=== PATIENT | female | born 1965 | race Caucasian/White ===

== ENCOUNTER 2017-08-28 21:27 | Observation (INO) | payer OTHER ==
[2017-08-28] MEDS ORDERED: ASPIRIN 81 MG PO STA (22:12)
--- NOTE | 2017-08-28 22:17 | ED ---
General Adult HPI - General Chief complaint: Chest Pain Stated complaint: heart palpitations Time Seen by Provider: 08/28/17 22:03 Source: patient Mode of arrival: wheelchair Limitations: no limitations - History of Present Illness Initial comments: This 52-year-old white female presents with the complaint of palpitations. She states that she has had these for many months. She states that she was sick throughout the winter with an upper respiratory infection. She was on steroids and thought that it could be related to the steroids. She's never been fully evaluated for her palpitations as of yet. She does relate that she will occasionally have some slight pressure to her lower chest as well. This seems to radiate up into her jaw and teeth. She also complains of occasional dizziness and nausea. She has had a stress test approximately 2 years ago which was normal. She denies any other cardiac disease. There is no shortness of breath. She states that her blood pressure has been slightly elevated. No other complaints or modifying factors. She does relate that she has a strong family history of cardiac disease. - Related Data Home Medications Medication Instructions Recorded Confirmed Estrogen,Angelica/Me-Testosterone 1 tab PO DAILY 08/18/15 08/28/17 [Covaryx H.s. Tablet] Levothyroxine Sodium [Unithroid] 100 mcg PO DAILY 08/18/15 08/28/17 Lisinopril [Prinivil] 5 mg PO DAILY 08/18/15 08/28/17 sitaGLIPtin PHOSPHATE [Januvia] 100 mg PO DAILY 08/18/15 08/28/17 Cholecalciferol [Vitamin D3] 1,000 unit PO BID 04/10/16 08/28/17 Multivitamins, Thera [Multivitamin] 1 tab PO DAILY 04/10/16 08/28/17 Aspirin 81 mg PO DAILY 08/28/17 08/28/17 Calcium Carbonate [Calcium] 600 mg PO DAILY 08/28/17 08/28/17 Fluticasone Nasal [place] [Flonase 1 spr EA NOSTRIL BID 08/28/17 08/28/17 Nasal [place]] Simvastatin 40 mg PO DAILY 08/28/17 08/28/17 metFORMIN HCL ER [Glucophage Xr] 1,000 mg PO QAM 08/28/17 08/28/17 metFORMIN HCL ER [Glucophage Xr] 500 mg PO HS 08/28/17 08/28/17 Allergies Allergy/AdvReac Type Severity Reaction Status Date / Time No Known Allergies Allergy Verified 08/28/17 22:28 Review of Systems ROS Statement: Those systems with pertinent positive or pertinent negative responses have been documented in the HPI. ROS Other: All systems not noted in ROS Statement are negative. Past Medical History Past Medical History: Cancer, Diabetes Mellitus, Hyperlipidemia, Thyroid Disorder Additional Past Medical History / Comment(s): uterine cancer History of Any Multi-Drug Resistant Organisms: None Reported Past Surgical History: Ear Surgery, Hysterectomy, Tubal Ligation Additional Past Surgical History / Comment(s): oral surgery, PE tube right ear Past Anesthesia/Blood Transfusion Reactions: No Reported Reaction Past Psychological History: No Psychological Hx Reported Smoking Status: Never smoker Past Alcohol Use History: None Reported Past Drug Use History: None Reported - Past Family History Father Family Medical History: Cancer General Exam - General Exam Comments Initial Comments: GENERAL: The patient is well nourished and well hydrated. VITAL SIGNS: Heart rate, blood pressure, respiratory rate reviewed as recorded in nurse's notes. EYES: Pupils are round and reactive. Extraocular movements are intact. No conjunctival / lid redness or swelling. ENT: No external evidence of injury, swelling, or ecchymosis. Airway is patent. Throat is clear. NECK: Nontender. No swelling or evidence of injury. No subcutaneous emphysema. Trachea is midline. No thyroid mass. HEART: Regular rate and rhythm. Good peripheral pulses. LUNGS/CHEST: Breath sounds clear and equal bilaterally. No rales, rhonchi, or wheezes. No ecchymosis, subcutaneous emphysema, or tenderness. ABDOMEN: Abdomen soft without tenderness. No palpable masses or organomegaly. No peritoneal signs. No abdominal wall swelling or ecchymosis. EXTREMITIES: No extremity tenderness. Normal muscle tone and function. No thoracolumbar tenderness. NEUROLOGIC: Sensation is grossly intact. Cranial nerve exam reveals face is symmetrical, tongue is midline, speech is clear. SKIN: No abrasions or ecchymosis is noted. No induration or masses noted. PSYCHIATRIC: Alert and oriented. Appropriate behavior and judgment. 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 All diagnostics were reviewed. An IV is established and she is placed on a shelter monitor. Multiple PVCs are noted on the shelter monitor while evaluating her in the room. The patient also had a normal sinus rhythm on her EKG with a rate of 77. There is no acute ST-T wave changes noted. The KS intervals 166, QRS duration is 86, and the QTc interval is 425. The patient does receive an aspirin. The chest x-ray does not show any acute process. The laboratory does show an elevation in her calcium level which is likely due to her calcium supplementation. The patient also had a slight elevation of her TSH. She does relate that she had a normal T3 and T4 done in May 2017. Overall, is felt likely that her palpitations are related to the PVCs. She is instructed to hold off on her calcium supplementation for the next week and then decrease her dose after that. The possibility of her having acute coronary syndrome also is possible and is felt as though she should be admitted to the hospital for further treatment in this regard. She is agreeable to this plan. The case will be discussed with internal medicine shortly and she will be admitted for observation. - Lab Data Result diagrams: 08/28/17 22:00 08/28/17 22:00 Lab Results 08/28/17 08/28/17 08/28/17 Range/Units 22:00 22:00 22:00 WBC 7.7 (3.8-10.6) k/uL RBC 4.92 (3.80-5.40) m/uL Hgb 14.5 (11.4-16.0) gm/dL Hct 41.2 (34.0-46.0) % MCV 83.7 (80.0-100.0) fL MCH 29.4 (25.0-35.0) pg MCHC 35.1 (31.0-37.0) g/dL RDW 13.9 (11.5-15.5) % Plt Count 225 (150-450) k/uL Neutrophils % 53 % Lymphocytes % 37 % Monocytes % 6 % Eosinophils % 1 % Basophils % 1 % Neutrophils # 4.1 (1.3-7.7) k/uL Lymphocytes # 2.9 (1.0-4.8) k/uL Monocytes # 0.4 (0-1.0) k/uL Eosinophils # 0.1 (0-0.7) k/uL Basophils # 0.0 (0-0.2) k/uL Poikilocytosis Slight PT (9.0-12.0) sec INR (<1.2) APTT (22.0-30.0) sec Sodium 141 (137-145) mmol/L Potassium 4.0 (3.5-5.1) mmol/L Chloride 101 (98-107) mmol/L Carbon Dioxide 24 (22-30) mmol/L Anion Gap 16 mmol/L BUN 14 (7-17) mg/dL Creatinine 0.70 (0.52-1.04) mg/dL Est GFR (CKD-EPI)AfAm >90 (>60 ml/min/1.73 sqM) Est GFR (CKD-EPI)NonAf >90 (>60 ml/min/1.73 sqM) Glucose 142 H (74-99) mg/dL Calcium 10.7 H (8.4-10.2) mg/dL Magnesium 1.9 (1.6-2.3) mg/dL Total Bilirubin 0.5 (0.2-1.3) mg/dL AST 20 (14-36) U/L ALT 26 (9-52) U/L Alkaline Phosphatase 59 (38-126) U/L Total Creatine Kinase 28 L (30-135) U/L CK-MB (CK-2) 0.4 (0.0-2.4) ng/mL CK-MB (CK-2) Rel Index 1.4 Troponin I <0.012 (0.000-0.034) ng/mL Total Protein 7.5 (6.3-8.2) g/dL Albumin 4.8 (3.5-5.0) g/dL TSH 5.360 H (0.465-4.680) mIU/L Free T4 1.43 (0.78-2.19) ng/dL 08/28/17 Range/Units 22:00 WBC (3.8-10.6) k/uL RBC (3.80-5.40) m/uL Hgb (11.4-16.0) gm/dL Hct (34.0-46.0) % MCV (80.0-100.0) fL MCH (25.0-35.0) pg MCHC (31.0-37.0) g/dL RDW (11.5-15.5) % Plt Count (150-450) k/uL Neutrophils % % Lymphocytes % % Monocytes % % Eosinophils % % Basophils % % Neutrophils # (1.3-7.7) k/uL Lymphocytes # (1.0-4.8) k/uL Monocytes # (0-1.0) k/uL Eosinophils # (0-0.7) k/uL Basophils # (0-0.2) k/uL Poikilocytosis PT 10.3 (9.0-12.0) sec INR 1.0 (<1.2) APTT 20.8 L (22.0-30.0) sec Sodium (137-145) mmol/L Potassium (3.5-5.1) mmol/L Chloride (98-107) mmol/L Carbon Dioxide (22-30) mmol/L Anion Gap mmol/L BUN (7-17) mg/dL Creatinine (0.52-1.04) mg/dL Est GFR (CKD-EPI)AfAm (>60 ml/min/1.73 sqM) Est GFR (CKD-EPI)NonAf (>60 ml/min/1.73 sqM) Glucose (74-99) mg/dL Calcium (8.4-10.2) mg/dL Magnesium (1.6-2.3) mg/dL Total Bilirubin (0.2-1.3) mg/dL AST (14-36) U/L ALT (9-52) U/L Alkaline Phosphatase (38-126) U/L Total Creatine Kinase (30-135) U/L CK-MB (CK-2) (0.0-2.4) ng/mL CK-MB (CK-2) Rel Index Troponin I (0.000-0.034) ng/mL Total Protein (6.3-8.2) g/dL Albumin (3.5-5.0) g/dL TSH (0.465-4.680) mIU/L Free T4 (0.78-2.19) ng/dL Disposition Clinical Impression: Unstable angina pectoris, Palpitations, Frequent PVCs, Dizziness, Chest pressure, Hypothyroidism, Hypercalcemia Disposition: ADMITTED IP TO THIS HOSP Condition: Good Is patient prescribed a controlled substance at discharge?: No Time of Disposition: 00:13
[2017-08-28 22:28] LABS: Basophils % (A) 1 %; Eosinophils # (A) 0.1 k/uL (0-0.7); Eosinophils % (A) 1 %; HCT 41.2 % (34.0-46.0); HGB 14.5 gm/dL (11.4-16.0); Lymphocytes # (A) 2.9 k/uL (1.0-4.8); Lymphocytes % (A) 37 %; MCH 29.4 pg (25.0-35.0); MCHC 35.1 g/dL (31.0-37.0); MCV 83.7 fL (80.0-100.0); Mean Platelet Volume 6.9; Monocytes # (A) 0.4 k/uL (0-1.0); Monocytes % (A) 6 %; Neutrophils # (A) 4.1 k/uL (1.3-7.7); Neutrophils % (A) 53 %; Platelet Count 225 k/uL (150-450); Poikilocytosis Slight; RBC 4.92 m/uL (3.80-5.40); RDW 13.9 % (11.5-15.5); WBC 7.7 k/uL (3.8-10.6)
[2017-08-28 22:40] LABS: ALT 26 U/L (9-52); AST 20 U/L (14-36); Albumin 4.8 g/dL (3.5-5.0); Alkaline Phosphatase 59 U/L (38-126); Anion Gap 16 mmol/L; Blood Urea Nitrogen 14 mg/dL (7-17); Calcium 10.7 mg/dL (8.4-10.2); Carbon Dioxide 24 mmol/L (22-30); Chloride 101 mmol/L (98-107); Glucose 142 mg/dL (74-99); Magnesium 1.9 mg/dL (1.6-2.3); Sodium 141 mmol/L (137-145); Total Bilirubin 0.5 mg/dL (0.2-1.3); Total Protein 7.5 g/dL (6.3-8.2)
--- NOTE | 2017-08-28 22:43 | XR ---
EXAMINATION TYPE: XR chest 2V DATE OF EXAM: 08/28/2017 COMPARISON: 08/18/2015 HISTORY: Chest pain TECHNIQUE: Frontal and lateral views of the chest are obtained. FINDINGS: Heart and mediastinum are normal. Lungs are clear. Diaphragm is normal. Bony thorax is int act. There are chest leads. IMPRESSION: Normal chest
[2017-08-28 22:49] LABS: Creatine Kinase 28 U/L (30-135)
[2017-08-28 22:55] LABS: Partial Thromboplastin Time 20.8 sec (22.0-30.0); Prothrombin Time 10.3 sec (9.0-12.0)
[2017-08-28 23:02] LABS: Creatine Kinase MB 0.4 ng/mL (0.0-2.4); Troponin I <0.012 ng/mL (0.000-0.034)
[2017-08-28 23:41] LABS: T4, Free (Free Thyroxine) 1.43 ng/dL (0.78-2.19)
[2017-08-29] MEDS ORDERED: NITROGLYCERIN OINT 1 INCH/GM PACKET TOPICAL STA (00:13)
[2017-08-29] MEDS ORDERED: NITROGLYCERIN SL TABS 0.4 MG TAB SUBLINGUAL PRN (00:14)
[2017-08-29] MEDS ORDERED: ACETAMINOPHEN TAB 500 MG TAB PO STA (00:24)
[2017-08-29 01:35] VITALS: BMI 27.7
[2017-08-29 04:54] LABS: Creatine Kinase 21 U/L (30-135)
[2017-08-29 05:06] LABS: Creatine Kinase MB 0.3 ng/mL (0.0-2.4); Troponin I <0.012 ng/mL (0.000-0.034)
[2017-08-29] MEDS ORDERED: NITROGLYCERIN OINT 1 INCH/GM PACKET TOPICAL SCH (06:00)
[2017-08-29] MEDS ORDERED: LEVOTHYROXINE 100 MCG TAB PO SCH (06:30)
[2017-08-29 07:04] LABS: Glucose,Whole Blood 141 mg/dL (75-99)
[2017-08-29 07:58] VITALS: RESP 16
[2017-08-29] MEDS ORDERED: FLUTICASONE 50MCG/SPRAY NASAL 16GM EA NOSTRIL SCH (09:00)
[2017-08-29] MEDS ORDERED: LINAGLIPTIN 5 MG TABLET PO SCH (09:00)
[2017-08-29] MEDS ORDERED: ESTROGEN ESTER PO SCH (09:00)
[2017-08-29] MEDS ORDERED: LISINOPRIL 5 MG TAB PO SCH (09:00)
[2017-08-29] MEDS ORDERED: ENOXAPARIN 40 MG/0.4 ML SYRINGE SQ SCH (09:00)
[2017-08-29] MEDS ORDERED: CHOLECALCIFEROL 1,000 UNIT TAB PO SCH (09:00)
[2017-08-29] MEDS ORDERED: ATORVASTATIN 20 MG TAB PO SCH (09:00)
[2017-08-29] MEDS ORDERED: MULTIVITAMINS, THERA 1 EACH TAB PO SCH (09:00)
[2017-08-29] MEDS ORDERED: TESTOSTERONE PO SCH (09:00)
[2017-08-29] MEDS ORDERED: metFORMIN 500 MG TAB PO SCH ×2 (09:00→21:00)
[2017-08-29] MEDS ORDERED: ACETAMINOPHEN TAB 325 MG TAB PO PRN (09:14)
--- NOTE | 2017-08-29 09:34 | P.CRDCN ---
History of Present Illness Consult date: 08/29/17 History of present illness: Mrs. Melvin is a pleasant 52-year-old female past medical history significant for diabetes mellitus, hypertension, dyslipidemia and family history of coronary artery disease with both her mother and father. She denies personal history of coronary artery disease and has never seen a hopper feeder for any reason. We have been asked to see her in consultation for chest pain and palpitations. She states since around June she has been experiencing palpitations. They come on with no specific aggravating factors. She had been taking antibiotics and oral steroids for upper respiratory infections off and on and her PCP thought they were possibly related to that. She has also cut out caffeine with hopes of resolving and this has not worked. She still describes the palpitations. Then starting about Saturday night she felt a heavy pressure sensation in the epigastric region. The discomfort radiates up into her neck and jaw with difficulty in taking a deep breath. She also feels mildly nauseated and dizzy at times with this discomfort. Saturday night she actually vomiting one time and the pain and other symptoms immediately subsided after vomiting. EKG reveals sinus mechanism with no acute ST or T-wave abnormalities. Telemetry tracings reveal multiple PVC's. Chest xray negative for an acute cardiopulmonary process. Laboratory data reviewed, hemoglobin 14.5, platelets 225, potassium 4.0, sodium 141, magnesium 1.9, creatinine 0.7, calcium 10.7, TSH 5.36 0, free T4 1 0.43, cardiac enzymes negative 2. Current cardiac medications include lisinopril 5 mg daily, aspirin 81 mg daily and simvastatin 40 mg daily. Most recent stress test performed in August 2015 was a Cardiolite stress test which revealed no evidence of stress-induced reversible ischemia with an ejection fraction of 57%. Review of Systems At the time of my exam: CONSTITUTIONAL: Denies fever. Denies chills. EYES: Denies blurred vision. Denies vision changes. Denies eye pain. EARS, NOSE, MOUTH & THROAT: Denies headache. Denies sore throat. Denies ear pain. CARDIOVASCULAR: Denies chest pain. Denies shortness of breath. Denies orthopnea. Denies PND. Denies palpitations. RESPIRATORY: Denies cough. GASTROINTESTINAL: Denies abdominal pain. Denies diarrhea. Denies constipation. Denies nausea. Denies vomiting. MUSCULOSKELETAL: Denies myalgias. INTEGUMENTARY: Denies pruitis. Denies rash. NEUROLOGIC: Denies numbness. Denies tingling. Denies weakness. PSYCHIATRIC: Denies anxiety. Denies depression. ENDOCRINE: Denies fatigue. Denies weight change. Denies polydipsia. Denies polyurina. GENITOURINARY: Denies burning, hematuria or urgency with micturation. HEMATOLOGIC: Denies history of anemia. Denies bleeding. Past Medical History Past Medical History: Cancer, Diabetes Mellitus, Hyperlipidemia, Thyroid Disorder Additional Past Medical History / Comment(s): uterine cancer-with surgery History of Any Multi-Drug Resistant Organisms: None Reported Past Surgical History: Ear Surgery, Hysterectomy, Tubal Ligation Additional Past Surgical History / Comment(s): oral surgery, tube right ear X2, full face lift 12/2016 Past Anesthesia/Blood Transfusion Reactions: No Reported Reaction Past Psychological History: No Psychological Hx Reported Smoking Status: Never smoker Past Alcohol Use History: None Reported Past Drug Use History: None Reported - Past Family History Father Family Medical History: Cancer, Coronary Artery Disease (CAD), Diabetes Mellitus Mother Family Medical History: Coronary Artery Disease (CAD), Diabetes Mellitus Sister(s) Additional Family Medical History / Comment(s): IBS, born with one kidney Medications and Allergies Home Medications Medication Instructions Recorded Confirmed Type Estrogen,Angelica/Me-Testosterone 1 tab PO DAILY 08/18/15 08/29/17 History [Covaryx H.s. Tablet] Levothyroxine Sodium [Unithroid] 100 mcg PO DAILY 08/18/15 08/29/17 History Lisinopril [Prinivil] 5 mg PO DAILY 08/18/15 08/29/17 History sitaGLIPtin PHOSPHATE [Januvia] 100 mg PO DAILY 08/18/15 08/29/17 History Cholecalciferol [Vitamin D3] 1,000 unit PO BID 04/10/16 08/29/17 History Multivitamins, Thera [Multivitamin] 1 tab PO DAILY 04/10/16 08/29/17 History Aspirin 81 mg PO DAILY 08/28/17 08/29/17 History Calcium Carbonate [Calcium] 600 mg PO DAILY 08/28/17 08/29/17 History Fluticasone Nasal [place] [Flonase 1 spr EA NOSTRIL BID 08/28/17 08/29/17 History Nasal [place]] Simvastatin 40 mg PO DAILY 08/28/17 08/29/17 History metFORMIN HCL ER [Glucophage Xr] 1,000 mg PO QAM 08/28/17 08/29/17 History metFORMIN HCL ER [Glucophage Xr] 500 mg PO HS 08/28/17 08/29/17 History Allergies Allergy/AdvReac Type Severity Reaction Status Date / Time ciprofloxacin [From Cipro] AdvReac Diarrhea Verified 08/29/17 01:24 Physical Exam Vitals: Vital Signs Temp Pulse Pulse Pulse Resp BP BP 08/29/17 07:20 98.6 F 77 16 103/60 08/29/17 05:06 78 18 08/29/17 04:00 98 F 80 16 105/56 08/29/17 01:15 90 18 08/29/17 00:54 97.6 F 90 18 192/84 08/29/17 00:29 97.6 F 83 18 157/74 08/28/17 23:42 86 18 127/64 08/28/17 22:05 90 94 18 149/74 08/28/17 21:31 98.3 F 91 20 165/85 Pulse Ox 08/29/17 07:20 98 08/29/17 05:06 08/29/17 04:00 97 08/29/17 01:15 08/29/17 00:54 97 08/29/17 00:29 98 08/28/17 23:42 98 08/28/17 22:05 98 08/28/17 21:31 99 Intake and Output 08/28/17 08/29/17 08/29/17 22:59 06:59 14:59 Intake Total 450 Balance 450 Intake: Oral 450 Other: Voiding Method Toilet # Voids 2 Weight 71.214 kg 73.3 kg Blood pressure 103/60 heart rate 77 afebrile maintaining oxygen saturation on room air GENERAL: This is a 52-year-old female in no apparent distress at the time of my examination. HEENT: Head is atraumatic, normocephalic. Pupils are equal, round. Sclerae anicteric. Conjunctivae are clear. Mucous membranes of the mouth are moist. Neck is supple. There is no jugular venous distention. No carotid bruit is heard. LUNGS: Clear to auscultation no wheezes, rales or rhonchi. No chest wall tenderness is noted on palpation or with deep breathing. HEART: Regular rate and rhythm without murmurs, rubs or gallops. S1 and S2 heard. ABDOMEN: Soft, nontender. Bowel sounds are heard. No organomegaly noted. EXTREMITIES: No evidence of peripheral edema and no calf tenderness noted. VASCULAR: Radial and dorsalis pedis pulses palpated, no evidence of clubbing. NEUROLOGIC: Patient is awake, alert and oriented x3. Results 08/28/17 22:00 08/28/17 22:00 Cardiac Enzymes 08/28/17 08/28/17 08/29/17 Range/Units 22:00 22:00 03:53 AST 20 (14-36) U/L CK-MB (CK-2) 0.4 0.3 (0.0-2.4) ng/mL Troponin I <0.012 <0.012 (0.000-0.034) ng/mL Coagulation 08/28/17 Range/Units 22:00 PT 10.3 (9.0-12.0) sec APTT 20.8 L (22.0-30.0) sec CBC 08/28/17 Range/Units 22:00 WBC 7.7 (3.8-10.6) k/uL RBC 4.92 (3.80-5.40) m/uL Hgb 14.5 (11.4-16.0) gm/dL Hct 41.2 (34.0-46.0) % Plt Count 225 (150-450) k/uL Comprehensive Metabolic Panel 08/28/17 Range/Units 22:00 Sodium 141 (137-145) mmol/L Potassium 4.0 (3.5-5.1) mmol/L Chloride 101 (98-107) mmol/L Carbon Dioxide 24 (22-30) mmol/L BUN 14 (7-17) mg/dL Creatinine 0.70 (0.52-1.04) mg/dL Glucose 142 H (74-99) mg/dL Calcium 10.7 H (8.4-10.2) mg/dL AST 20 (14-36) U/L ALT 26 (9-52) U/L Alkaline Phosphatase 59 (38-126) U/L Total Protein 7.5 (6.3-8.2) g/dL Albumin 4.8 (3.5-5.0) g/dL Current Medications Generic Name Dose Route Start Last Admin Trade Name Freq PRN Reason Stop Dose Admin Aspirin 81 mg 08/30/17 09:00 Aspirin PO DAILY [facility] Atorvastatin Calcium 20 mg 08/29/17 09:00 Lipitor PO DAILY [facility] Cholecalciferol 1,000 unit 08/29/17 09:00 Vitamin D3 PO BID [facility] Enoxaparin Sodium 40 mg 08/29/17 09:00 Lovenox SQ DAILY [facility] Fluticasone Propionate 1 spray 08/29/17 09:00 Flonase Nasal [place] EA NOSTRIL BID [facility] Levothyroxine Sodium 100 mcg 08/29/17 06:30 Synthroid PO 0630 [facility] Linagliptin 5 mg 08/29/17 09:00 Tradjenta PO DAILY [facility] Lisinopril 5 mg 08/29/17 09:00 Zestril PO DAILY [facility] Metformin HCl 500 mg 08/29/17 21:00 Glucophage PO HS [facility] Metformin HCl 1,000 mg 08/29/17 09:00 Glucophage PO QAM [facility] Multivitamins 1 each 08/29/17 09:00 Theragran PO DAILY [facility] Nitroglycerin 0.4 mg 08/29/17 00:14 Nitrostat SUBLINGUAL Q5M PRN Chest Pain Non-Formulary Medication 1 tab 08/29/17 09:00 Estrogen,Angelica/Me-Testosterone [Covaryx H.S. Tablet] PO DAILY [facility] Intake and Output 08/28/17 08/29/17 08/29/17 22:59 06:59 14:59 Intake Total 450 Balance 450 Intake: Oral 450 Other: Voiding Method Toilet # Voids 2 Weight 71.214 kg 73.3 kg 08/28/17 22:00 08/28/17 22:00 Assessment and Plan Assessment: ASSESSMENT 1. Chest pain, atypical. An acute coronary event has been ruled out with no EKG evidence of ischemia and negative cardiac enzymes. 2. Palpitations with evidence of PVCs on telemetry 3. Diabetes mellitus 4. Hypertension 5. Dyslipidemia 6. Family history of coronary artery disease 7. Mild hypercalcemia taking daily supplementation. 8. Hypothyroidism, on levothyroxine with TSH 5.36. PLAN Obtain 2-D echocardiogram and Doppler study to assess cardiac structure and function. Perform stress echocardiogram to assess her stress induced cardiac ischemia. Consider adjustment of levothyroxine per medical team, may be contributing to her palpitations. Continue with aspirin 81 mg daily, lisinopril 5 mg daily and atorvastatin 40 mg daily. If stress test is normal she is stable from a cardiac perspective. Follow-up with Dr. Tobar in 2-3 weeks. Thank you kindly for this consultation. The above impression and plan of care have been discussed and directed by the signing physician. Dari Taylor, nurse practitioner, acting as scribe for signing physician.
--- NOTE | 2017-08-29 10:31 | ECHOF ---
Referral Reason:cp MEASUREMENTS -------- HEIGHT: 162.6 cm WEIGHT: 73.0 kg BP: 105/56 RVIDd: 2.3 cm (< 3.3) IVSd: 0.9 cm (0.6 - 1.1) LVIDd: 3.9 cm (3.9 - 5.3) LVPWd: 1.0 cm (0.6 - 1.1) IVSs: 1.0 cm LVIDs: 2.8 cm LVPWs: 1.2 cm LAESV Index (A-L): 21.40 ml/m Ao Diam: 2.6 cm (2.0 - 3.7) AV Cusp: 1.6 cm (1.5 - 2.6) LA Diam: 2.7 cm (2.7 - 3.8) EPSS: 0.5 cm MV E [place]: 0.82 m/s MV DecT: 244 ms MV A [place]: 0.92 m/s MV E/A Ratio: 0.90 RAP: 5.00 mmHg RVSP: 21.24 mmHg MV EF SLOPE: 91.77 mm/s (70 - 150) MV EXCURSION: 1.74 cm (> 18.000) FINDINGS -------- Sinus rhythm. This was a technically good study. The left ventricular size is normal. Left ventricular wall thickness is normal. Overall left vent ricular systolic function is normal with, an EF between 55 - 60 %. The right ventricle is normal in size and function. Normal LA size by volume 22+/-6 ml/m2. The right atrium is normal in size. Aortic valve is trileaflet and is mildly thickened. There is no evidence of aortic regurgitation. There is no evidence of aortic stenosis. The mitral valve leaflets are mildly thickened. There is trace to mild mitral regurgitation. Trace tricuspid regurgitation present. Right ventricular systolic pressure is normal at < 35 mmHg. There is no evidence of pulmonary hypertension. Trace/mild (physiologic) pulmonic regurgitation. The aortic root size is normal. Normal inferior vena cava with normal inspiratory collapse consistent with estimated right atrial pre ssure of 5 mmHg. There is no pericardial effusion. CONCLUSIONS -------- 1. Sinus rhythm. 2. This was a technically good study. 3. The left ventricular size is normal. 4. Left ventricular wall thickness is normal. 5. Overall left ventricular systolic function is normal with, an EF between 55 - 60 %. 6. Normal LA size by volume 22+/-6 ml/m2. 7. Aortic valve is trileaflet and is mildly thickened. 8. The mitral valve leaflets are mildly thickened. 9. There is trace to mild mitral regurgitation. 10. Trace tricuspid regurgitation present. 11. Right ventricular systolic pressure is normal at < 35 mmHg. 12. There is no evidence of pulmonary hypertension. 13. Trace/mild (physiologic) pulmonic regurgitation. 14. The aortic root size is normal. 15. There is no pericardial effusion. EXPORT SPECIALIST: Michel Vazquez RDCS
[2017-08-29 11:46] LABS: Creatine Kinase 22 U/L (30-135)
[2017-08-29 11:59] LABS: Creatine Kinase MB 0.3 ng/mL (0.0-2.4); Troponin I <0.012 ng/mL (0.000-0.034)
[2017-08-29 12:23] LABS: Glucose,Whole Blood 276 mg/dL (75-99)
[2017-08-29 13:10] VITALS: BP 131/76; PULSE 87; TEMP 98
[2017-08-29 17:41] LABS: Glucose,Whole Blood 150 mg/dL (75-99)
--- NOTE | 2017-08-29 17:52 | HP ---
HISTORY AND PHYSICAL HISTORY PHYSICAL AND DISCHARGE SUMMARY: OF SERVICE: August 29, 2017. PRESENTING COMPLAINT: Palpitation. HISTORY OF PRESENTING COMPLAINT: This is a very pleasant 52-year-old patient of Dr. Clemens whose chronic stable medical conditions include diabetes, hyperlipidemia, hypothyroid. The patient whole winter been having what she describes as a viral infection on and off. Did go to see Dr. Clemens a few times in Urgent Care. The patient did get antibiotics, prednisone and had been having intermittent palpitations in the last 2 weeks. The patient's palpitations became more noticeable sometimes going down to her neck. Denies any chest pain, palpitation, no passing out. No fever. No chills. The patient is otherwise rather quite active. The patient did get a pulse checked with one of her colleagues and told she had a bit of irregular pulse. Because of these symptoms, she decided to come in to get checked out. Still nothing was picked up on the EKG here. Patient denies taking any decongestants or an excessive caffeine intake. REVIEW OF SYSTEMS: CONSTITUTIONAL: None. HEENT none. Respiratory as above. Cardiovascular as above. Gastrointestinal none. Musculoskeletal: None. Dermatological, hematologic, lymphatic none. Psychiatry none. Neurological none. PAST MEDICAL HISTORY: Diabetes mellitus type 2, hyperlipidemia, hypothyroid, uterine cancer with hysterectomy. PAST SURGICAL HISTORY: Hysterectomy, tubal ligation, surgery, tube in the right ear in the winter and a full face lift. SOCIAL HISTORY: Does not smoke. Alcohol rarely. . 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 FAMILY HISTORY: Coronary artery disease, diabetes, irritable bowel syndrome. HOME MEDICATIONS: 1. Januvia 100 mg p.o. daily. 2. Glucophage XR 1000 mg in the morning, 500 mg at night. 3. Simvastatin 40 mg a day. 4. Multivitamin 1 tab p.o. daily. 5. Prinivil 5 mg p.o. daily. 6. Levothroid 100 mcg p.o. daily. 7. Flonase 1 spray each nostril b.i.d. 8. Estrogen, testosterone 1 tab p.o. daily. 9. Vitamin D3 1000 units p.o. daily. 10.Calcium 600 mg p.o. daily. 11.Aspirin 81 mg p.o. daily. ALLERGIES: CIPRO. EXAMINATION: Temp 98, pulse 87, respiratory rate 16, blood pressure 130/76 pulse ox 96% on room air. General appearance: Average built, sitting up comfortable. Eyes: Pupils are equal. Conjunctivae normal. HEENT: External appearance of nose and ears normal. Oral cavity normal. Neck JVD not raised. Mass not palpable. Respiratory effort normal. Lungs are clear. Cardiovascular 1st and 2nd sounds no edema. ABDOMEN: Soft, nontender. Liver and spleen not palpable. Lymphatics: No lymph nodes palpable in the neck and axilla. PSYCHIATRY: Alert and oriented x3. Mood and affect normal. Neurological pupils equal. Cranial nerves grossly intact. Power and sensation grossly intact. INVESTIGATIONS: White count 7.7, hemoglobin 14.5, potassium 4.0, BUN creatinine normal. Troponin x3 negative. TSH is 5.3, free T4 1.43. EKG normal sinus rhythm. 2D echocardiogram unremarkable. Stress test reported to me by the nurse negative. ASSESSMENT: 1. This is a patient with episodes of recurrent palpitations. Nothing has been picked up on telemetry or patient could be having PVCs. Arrhythmia needs to be ruled out. Stress echocardiogram was negative. We will have the patient do Holter monitor in Dr. Tobar's office. 2. Diabetes mellitus type 2. 3. Hyperlipidemia. 4. Hypothyroidism. There is no need to change her medications at this point. 5. Hypercalcemia. Patient taking calcium supplements that can be discontinued. PLAN: Care was discussed with the patient. She is pretty healthy. Does not need to take any supplements at this point. The patient will be discharged on the current home medications except the calcium supplement will be discontinued. Will have the patient follow up with family doctor, Dr. Clemens's and also Dr. Tobar's office to get a Holter monitor. On examination temperature 98, pulse 87, respiratory rate 16, blood pressure 130/76, pulse ox 96% on room air. General appearance: Average built, sitting up, comfortable. Eyes: Pupils equal. Conjunctivae normal. HEENT external appearance of nose and ears normal. Oral cavity normal. Neck JVD not raised. Mass not palpable. Respiratory effort lungs clear. Cardiovascular 1st and 2nd sounds normal. No edema. Abdomen is soft, nontender. Liver and spleen not palpable. Psychiatry: Alert and oriented x3. Mood and affect normal. This is a history physical and discharge summary on Luda Melvin. Copy to Dr. Clemens. CONSULTATION: Dr. Cristina Tobar from Cardiology. MMODL / IJN: [id number] /
[2017-08-30] MEDS ORDERED: ASPIRIN 81 MG PO SCH (09:00)
[2017-08-30] MEDS ORDERED: ASPIRIN 325 MG TAB PO SCH (09:00)
--- NOTE | 2017-09-02 08:47 | ECHOS ---
STRESS ECHOCARDIOGRAM DATE OF SERVICE: 08/29/2017 INDICATIONS: Chest pain. MEDICATIONS: BASELINE HEART RATE: 104 BASELINE BLOOD PRESSURE: 98/81 MAXIMUM HEART RATE: 168 MAXIMUM BLOOD PRESSURE: 183/117 85% MPHR: 143 100% MPHR: 168 METS: 8.5 MAXIMUM STAGE REACHED: III TOTAL EXERCISE TIME: 7 minutes CLINICAL INFORMATION: Baseline EKG shows sinus rhythm, normal axis, normal intervals. Patient exercised on Freddy protocol for a total of 7 minutes achieving 8 METs, 100% of predicted maximal heart rate without chest pain. At peak exercise there was 0.[address]-segment depression noted. Baseline echo shows normal left ventricular size, wall motion and systolic function. Postexercise, there is normal hyperdynamic response of all segments of myocardium noted. CONCLUSIONS: 1. Above-average exercise tolerance. 2. Nondiagnostic EKG changes with exercise. 3. Negative stress echo. MMODL / IJN: [id number] /
== END 2017-08-29 18:11 | disposition home or self-care (01) ==
LOC: EC 21:27 → 3OBS 08-29 00:14
PROVIDERS: ADMIT Hospitalist; ATTEND Hospitalist
DX: R00.2 Palpitations (principal); R07.89 Other chest pain; R42 Dizziness and giddiness; R11.2 Nausea with vomiting, unspecified; E78.5 Hyperlipidemia, unspecified; E11.9 Type 2 diabetes mellitus without complications; E03.9 Hypothyroidism, unspecified; E83.52 Hypercalcemia; Z85.42 Personal history of malignant neoplasm of other parts of uterus; Z83.3 Family history of diabetes mellitus; Z82.49 Family history of ischemic heart disease and other diseases of the circulatory system; Z79.84 Long term (current) use of oral hypoglycemic drugs; Z79.82 Long term (current) use of aspirin; Z79.899 Other long term (current) drug therapy; Z79.890 Hormone replacement therapy; Z79.51 Long term (current) use of inhaled steroids; Z88.1 Allergy status to other antibiotic agents; I10 Essential (primary) hypertension; I49.3 Ventricular premature depolarization
CPT/HCPCS: 99285; 36415; 93005; 93306; 93350; 84439; 80053; 84443; 82550 ×2; 82553 ×2; 83735; 84484 ×2; 85025; 85610; 85730; 71046; G0378

== ENCOUNTER → 2023-04-12 | Outpatient (CLI) | payer OTHER ==
--- NOTE | 2023-04-19 11:22 | MR ---
EXAMINATION TYPE: MR brain and iac wo/w con DATE OF EXAM: 04/12/2023 COMPARISON: None HISTORY: Right pulsatile tinnitus for 1 year. CONTRAST: Performed utilizing 6.5 mL intravenous Gadavist gadolinium contrast. TECHNIQUE: Multiplanar, multiecho imaging on a 3.0 Elvia magnet is performed through the brain. Atte ntion is paid to the internal auditory canals with thin section imaging. Postcontrast imaging is per formed through the internal auditory canals. FINDINGS:Craniovertebral junction is normal. The pituitary is normal. Diffusion-weighted imaging is performed. No suspicious hyperintensity is present to suggest an acute intracranial infarct or acute ischemic area. Signal within the brain has a few scattered areas of hyperintensities which are non-specific but coul d be related to microvascular ischemic changes. Thin section imaging is performed through the internal auditory canals and cerebellar pontine angles. No cerebellar pontine angle masses are evident. The internal auditory canals appear normal without expansion or erosion. Postcontrast imaging was performed. No suspicious enhancement is evident within the internal audito ry canals or the included portions of the brain. Mucosal thickening is present through the right maxillary sinus. Minimal mucosal thickening inferior left maxillary sinus. Some mild mucosal thickening is within the anterior ethmoid air cells. There is some thickening in the left sphenoid sinus. Appears to be some calcification along the falx. IMPRESSION: 1. No suspicious enhancing lesions or expansion of the internal auditory canals. 2. Clinical correlation recommended for chronic sinusitis.
--- NOTE | 2023-04-19 11:23 | MR ---
EXAMINATION TYPE: MR angio head wo con DATE OF EXAM: 04/12/2023 COMPARISON: None HISTORY: Right pulsatile tinnitus for 1 year. CONTRAST: None TECHNIQUE: Multiplanar multiecho imaging on a 3.0 Elvia magnet is performed through the [place]. 3-D [id number] imaging is performed. Source images are reviewed on the computer in the axi al plane. Reconstructed images rotating on the computer are reviewed. FINDINGS: The internal carotid arteries bifurcate normally into A1 and M1 segments. The A2 segments are normal. Middle cerebral artery branches are normal. Anterior communicating artery is patent. The right posterior communicating artery is patent. The left posterior communicating artery is patent. Vertebrobasilar arteries within the [id number] are normal. Posterior cerebral vasculature is norm al. No suspicious aneurysm or aneurysmal dilatation is evident. No obstructions are identified. No significant flow-limiting stenosis is evident. IMPRESSION: 1. NORMAL MRA [place].
== END | disposition home or self-care (01) ==
LOC: RADMRIMAIN 17:09
PROVIDERS: ATTEND Otolaryngology
DX: H93.A1 Pulsatile tinnitus, right ear (principal)
CPT/HCPCS: 70544; 70553; A9585